=== PATIENT | female | born 1955 | race Caucasian/White ===

== ENCOUNTER → 2016-12-09 | Outpatient (CLI) | payer OTHER | LOC: HEART CORB 12-07 13:00 | DX: I05.9 Rheumatic mitral valve disease, unspecified (principal) | CPT/HCPCS: 93306 ==

== ENCOUNTER → 2021-07-21 | Outpatient (CLI) | payer MEDICARE, OTHER ==
[~2021-07-21] MED LIST: NAPROSYN500 MG PO
== END ==
LOC: HEART CORB 08:49
DX: I34.1 Nonrheumatic mitral (valve) prolapse (principal); I34.9 Nonrheumatic mitral valve disorder, unspecified; R07.9 Chest pain, unspecified; R00.2 Palpitations
CPT/HCPCS: 93306